=== PATIENT | male | born 1955 | race Caucasian/White ===

== ENCOUNTER 2019-10-12 09:00 | Inpatient (IN) | payer MEDICAID ==
[~2019-10-12] VITALS: Ht 172.7 cm; Wt 57.4 kg
[2019-10-12 10:55] LABS: HEMATOCRIT. 49.5 % (42.0-52.0); HEMOGLOBIN. 16.4 g/dL (14.0-18.0); MEAN CORPUSCULAR HEMOGLOBIN 32.2 pg (28.0-32.0); MEAN CORPUSCULAR VOLUME 97.1 fL (80.0-94.0); MEAN PLATELET VOLUME 7.3 fl (7.4-10.4); PLATELET 180 x1000/uL (130-400); RED CELL DISTRIBUTION WIDTH 14.1 % (11.6-14.6)
[2019-10-12 11:01] LABS: INR 1.1; PROTHROMBIN TIME 12.1 sec (9.6-11.0)
[2019-10-12 11:03] LABS: CHLORIDE 105 mEq/L (98-107)
[2019-10-12 11:31] LABS: PLATELET ESTIMATE NORMAL
[2019-10-12] MEDS ORDERED: SODIUM CHLORIDE 0.9% 1,000 ML IV ONE ×2 (11:36→12:29)
[2019-10-12 11:43] LABS: BG BASE EXCESS -1.6 mmol/L (-2.0-2.0); BG CARBOXYHEMOGLOBIN 0.4 % (0.5-1.5); BG DEOXYHEMOGLOBIN 3.3 % (0.0-5.0); BG FRACTION INSPIRED OXYGEN 36; BG HCO3 ACT 20.3 mmol/L (22.0-26.0); BG METHEMOGLOBIN 0.1 % (0.0-1.5); BG OXYGEN SATURATION 96.7 % (92.0-98.5); BG OXYHEMOGLOBIN 96.2 % (94.0-97.0); BG PCO2 27.6 mmHg (35.0-45.0); BG PH 7.484 (7.350-7.450); BG PO2 84.9 mmHg (75.0-100.0); BG SAMPLE SITE RIGHT BRACHIAL; BG TOTAL HEMOGLOBIN 15.4 g/dL (12.0-18.0); BG VENT MODE NASAL CANNULA
[2019-10-12] MEDS ORDERED: VANCOMYCIN 1 G PREMIX 200 ML IV ONE (11:45)
[2019-10-12] MEDS ORDERED: PIPERACILLIN/TAZ 3.375G PREMIX 50 ML IV ONE (11:45)
[2019-10-12] MEDS ORDERED: LEVOFLOXACIN 750MG PREMIX 150 ML IV ONE (13:00)
[2019-10-12] MEDS ORDERED: BENZONATATE 100MG CAPSULE PO PRN (14:15)
[2019-10-12] MEDS ORDERED: METOCLOPRAMIDE HCL 10MG/2ML VIAL IV PRN (14:15)
[2019-10-12] MEDS ORDERED: CLONIDINE 0.1MG TABLET PO PRN (14:15)
[2019-10-12] MEDS ORDERED: FUROSEMIDE 40MG/4ML VIAL IVP NR (15:18)
[2019-10-12] MEDS ORDERED: CEFEPIME 1,000 MG in DEXTROSE 5% WATER 50 ML IV NR (15:30)
[2019-10-12] MEDS: CEFEPIME 1,000 MG in DEXTROSE 5% WATER 50 ML IV SCH (15:33)
[2019-10-12] MEDS: THIAMINE HCL 100MG TABLET PO SCH (19:13)
[2019-10-12] MEDS ORDERED: ASCORBIC ACID 500 MG TABLET PO SCH (21:00)
[2019-10-13] MEDS: CEFEPIME 1,000 MG in DEXTROSE 5% WATER 50 ML IV SCH (02:15)
[2019-10-13] MEDS ORDERED: ZINC SULFATE 220 MG ( 50 ) CAPSULE PO SCH (09:00)
[2019-10-13] MEDS: THIAMINE HCL 100MG TABLET PO SCH ×2 (09:00→17:00)
[2019-10-13] MEDS ORDERED: AZITHROMYCIN 500 MG TABLET PO SCH (09:00)
[2019-10-13] MEDS: AZITHROMYCIN 500MG in DEXTROSE 5% WATER 250ML IV SCH ×2 (09:30→12:53)
[2019-10-13] MEDS ORDERED: CEFEPIME 1,000 MG in DEXTROSE 5% WATER 50 ML IV SCH (14:45)
[2019-10-13 22:47] VITALS: BP 137/81
[2019-10-14] VITALS: BP 135/79
[2019-10-14] MEDS ORDERED: CLOP75TA4 PO (01:07)
[2019-10-14] MEDS ORDERED: ACET-2708 MT (01:07)
[2019-10-14] MEDS ORDERED: BENA20TA10 MT (01:07)
[2019-10-14] MEDS ORDERED: ASPI-1497 PO (01:07)
[2019-10-14] MEDS ORDERED: TOPUD MT (01:07)
[2019-10-14 04:00] VITALS: BP 138/88
[2019-10-14] MEDS: ACETAMINOPHEN 325MG TABLET PO PRN ×2 (05:21→22:24)
[2019-10-14 08:00] VITALS: BP 135/81
[2019-10-14] MEDS: THIAMINE HCL 100MG TABLET PO SCH ×2 (10:36→19:08)
[2019-10-14] MEDS: AZITHROMYCIN 250 MG TABLET PO SCH (10:37)
[2019-10-14] MEDS: ASCORBIC ACID 500 MG TABLET PO SCH ×2 (10:37→21:48)
[2019-10-14] MEDS: ENOXAPARIN 40MG/0.4ML SYR SUBCUT SCH (10:38)
[2019-10-14] MEDS: CEFEPIME 1,000 MG in DEXTROSE 5% WATER 50 ML IV SCH ×2 (10:39→22:24)
[2019-10-14] MEDS: ZINC SULFATE 220 MG ( 50 ) CAPSULE PO SCH (10:39)
[2019-10-14] MEDS ORDERED: FUROSEMIDE 40MG TABLET PO NR (11:44)
[2019-10-14 12:00] VITALS: BP 139/83
[2019-10-14 16:00] VITALS: BP_SYST 147
[2019-10-14 18:21] LABS: COVID-19 PCR RNA DETECTED
[2019-10-14 20:00] VITALS: BP 151/89
[2019-10-15] VITALS (7 sets, daily range): BP systolic 134–158; BP diastolic 63–91
[2019-10-15] MEDS: AZITHROMYCIN 250 MG TABLET PO SCH (08:20)
[2019-10-15] MEDS: FUROSEMIDE 20MG/2ML VIAL IVP SCH (08:20)
[2019-10-15] MEDS: ASCORBIC ACID 500 MG TABLET PO SCH ×2 (08:21→20:21)
[2019-10-15] MEDS: ENOXAPARIN 40MG/0.4ML SYR SUBCUT SCH (08:21)
[2019-10-15] MEDS: THIAMINE HCL 100MG TABLET PO SCH ×2 (08:21→17:55)
[2019-10-15] MEDS: ZINC SULFATE 220 MG ( 50 ) CAPSULE PO SCH (08:21)
[2019-10-15] MEDS: CEFEPIME 1,000 MG in DEXTROSE 5% WATER 50 ML IV SCH ×2 (08:22→20:21)
[2019-10-15] MEDS: ALBUTEROL 6.7GM HFA INHALER ORI SCH ×2 (18:05→23:17)
[2019-10-15] MEDS ORDERED: DEXT 5%/0.45% NACL 1000ML 1,000 ML IV SCH (18:30)
[2019-10-15 20:53] LABS: COVID-19 PCR RNA DETECTED
[2019-10-15] MEDS: ACETAMINOPHEN 325MG TABLET PO PRN (21:41)
[2019-10-15 22:01] LABS: BASOPHILS % 0.1 % (0.0-2.0); HEMATOCRIT. 45.2 % (42.0-52.0); HEMOGLOBIN. 15.3 g/dL (14.0-18.0); LYMPHOCYTES % 14.2 % (20.0-50.0); MEAN CORPUSCULAR HEMOGLOBIN 32.5 pg (28.0-32.0); MEAN CORPUSCULAR VOLUME 95.8 fL (80.0-94.0); MEAN PLATELET VOLUME 8.2 fl (7.4-10.4); MONOCYTES % 9.3 % (2.0-8.0); NEUTROPHILS % 76.4 % (40.0-76.0); PLATELET 290 x1000/uL (130-400); RED BLOOD CELL COUNT 4.72 mill/uL (4.7-6.1); RED CELL DISTRIBUTION WIDTH 14.2 % (11.6-14.6)
[2019-10-15 22:08] LABS: CHLORIDE 110 mEq/L (98-107)
[2019-10-16] VITALS: BP 131/87
[2019-10-16 04:00] VITALS: BP 120/71
[2019-10-16 06:14] LABS: BASOPHILS % 0.2 % (0.0-2.0); EOSINOPHILS % 0.1 % (0.0-5.0); HEMATOCRIT. 44.3 % (42.0-52.0); HEMOGLOBIN. 14.7 g/dL (14.0-18.0); LYMPHOCYTES % 14.5 % (20.0-50.0); MEAN CORPUSCULAR HEMOGLOBIN 32.1 pg (28.0-32.0); MEAN CORPUSCULAR VOLUME 96.5 fL (80.0-94.0); MEAN PLATELET VOLUME 8.3 fl (7.4-10.4); NEUTROPHILS % 78.2 % (40.0-76.0); PLATELET 285 x1000/uL (130-400); RED BLOOD CELL COUNT 4.59 mill/uL (4.7-6.1); RED CELL DISTRIBUTION WIDTH 14.2 % (11.6-14.6)
[2019-10-16] MEDS: ALBUTEROL 6.7GM HFA INHALER ORI SCH ×3 (06:51→17:11)
[2019-10-16 07:43] LABS: CHLORIDE 111 mEq/L (98-107)
[2019-10-16 08:00] VITALS: BP 144/70
[2019-10-16 08:00] LABS: PHOSPHORUS 3.3 mg/dL (2.5-4.9)
[2019-10-16 08:03] LABS: CREATINE KINASE MB FRACTION < 1.0 ng/mL (0.5-3.6)
[2019-10-16] MEDS: CEFEPIME 1,000 MG in DEXTROSE 5% WATER 50 ML IV SCH ×2 (09:57→20:59)
[2019-10-16] MEDS: FUROSEMIDE 20MG/2ML VIAL IVP SCH (09:57)
[2019-10-16] MEDS: ZINC SULFATE 220 MG ( 50 ) CAPSULE PO SCH (09:57)
[2019-10-16] MEDS: THIAMINE HCL 100MG TABLET PO SCH ×2 (09:58→16:31)
[2019-10-16] MEDS: AZITHROMYCIN 250 MG TABLET PO SCH (09:58)
[2019-10-16] MEDS: ASCORBIC ACID 500 MG TABLET PO SCH ×2 (09:58→20:59)
[2019-10-16] MEDS: ENOXAPARIN 40MG/0.4ML SYR SUBCUT SCH (09:59)
[2019-10-16 12:00] VITALS: BP 118/79
[2019-10-16] MEDS ORDERED: FUROSEMIDE 40MG/4ML VIAL IVP SCH (12:00)
[2019-10-16] MEDS: METHYLPREDNISOLONE SOD SUCC 40 MG/ML VIAL IV SCH ×2 (12:04→21:02)
[2019-10-16 16:00] VITALS: BP 111/70
[2019-10-16] MEDS ORDERED: ENOXAPARIN 30MG/0.3ML SYR SUBCUT SCH (17:00)
[2019-10-16] MEDS: FLUTICASONE FUROATE 100 1 INH/CAP ORI SCH ×2 (17:10→20:59)
[2019-10-16 20:00] VITALS: BP 112/75
[2019-10-16] MEDS: ENOXAPARIN 60MG/0.6ML SYR SUBCUT SCH (21:03)
[2019-10-17] VITALS (7 sets, daily range): BP systolic 113–119; BP diastolic 72–78
[2019-10-17] MEDS: ALBUTEROL 6.7GM HFA INHALER ORI SCH ×4 (05:22→18:23)
[2019-10-17] MEDS: FUROSEMIDE 20MG/2ML VIAL IVP SCH (09:09)
[2019-10-17] MEDS: CEFEPIME 1,000 MG in DEXTROSE 5% WATER 50 ML IV SCH ×2 (09:09→21:21)
[2019-10-17] MEDS: AZITHROMYCIN 250 MG TABLET PO SCH (09:09)
[2019-10-17] MEDS: THIAMINE HCL 100MG TABLET PO SCH ×2 (09:09→16:24)
[2019-10-17] MEDS: METHYLPREDNISOLONE SOD SUCC 40 MG/ML VIAL IV SCH ×2 (09:09→21:21)
[2019-10-17] MEDS: ZINC SULFATE 220 MG ( 50 ) CAPSULE PO SCH (09:09)
[2019-10-17] MEDS: ASCORBIC ACID 500 MG TABLET PO SCH ×2 (09:09→21:21)
[2019-10-17] MEDS: ENOXAPARIN 60MG/0.6ML SYR SUBCUT SCH ×2 (09:10→21:21)
[2019-10-17] MEDS: FLUTICASONE FUROATE 100 1 INH/CAP ORI SCH ×2 (09:10→21:21)
[2019-10-18] VITALS (7 sets, daily range): BP systolic 108–127; BP diastolic 70–75
[2019-10-18] MEDS: ALBUTEROL 6.7GM HFA INHALER ORI SCH ×5 (00:26→23:14)
[2019-10-18] MEDS: CEFEPIME 1,000 MG in DEXTROSE 5% WATER 50 ML IV SCH ×2 (08:02→20:17)
[2019-10-18] MEDS: ZINC SULFATE 220 MG ( 50 ) CAPSULE PO SCH (08:03)
[2019-10-18] MEDS: ASCORBIC ACID 500 MG TABLET PO SCH ×2 (08:03→20:17)
[2019-10-18] MEDS: METHYLPREDNISOLONE SOD SUCC 40 MG/ML VIAL IV SCH ×2 (08:03→20:17)
[2019-10-18] MEDS: THIAMINE HCL 100MG TABLET PO SCH ×2 (08:03→16:28)
[2019-10-18] MEDS: FLUTICASONE FUROATE 100 1 INH/CAP ORI SCH ×2 (08:03→20:17)
[2019-10-18] MEDS: FUROSEMIDE 20MG/2ML VIAL IVP SCH (08:03)
[2019-10-18] MEDS: ENOXAPARIN 60MG/0.6ML SYR SUBCUT SCH ×2 (08:04→20:18)
[2019-10-19] VITALS (7 sets, daily range): BP systolic 111–131; BP diastolic 65–89
[2019-10-19] MEDS: DOXYCYCLINE 100 MG in DEXT 5% WATER 100 ML IV SCH ×2 (03:31→13:17)
[2019-10-19] MEDS: ALBUTEROL 6.7GM HFA INHALER ORI SCH ×3 (05:28→18:21)
[2019-10-19 07:09] LABS: HEMATOCRIT. 53.8 % (42.0-52.0); MEAN CORPUSCULAR HEMOGLOBIN 32.6 pg (28.0-32.0); MEAN CORPUSCULAR VOLUME 97.4 fL (80.0-94.0); MEAN PLATELET VOLUME 9.2 fl (7.4-10.4); PLATELET 449 x1000/uL (130-400); RED BLOOD CELL COUNT 5.53 mill/uL (4.7-6.1); RED CELL DISTRIBUTION WIDTH 14.7 % (11.6-14.6)
[2019-10-19 07:50] LABS: CHLORIDE 111 mEq/L (98-107)
[2019-10-19] MEDS: METHYLPREDNISOLONE SOD SUCC 40 MG/ML VIAL IV SCH (09:04)
[2019-10-19] MEDS: FUROSEMIDE 20MG/2ML VIAL IVP SCH (09:04)
[2019-10-19] MEDS: CEFEPIME 1,000 MG in DEXTROSE 5% WATER 50 ML IV SCH ×2 (09:04→20:00)
[2019-10-19] MEDS: ZINC SULFATE 220 MG ( 50 ) CAPSULE PO SCH (09:05)
[2019-10-19] MEDS: ASCORBIC ACID 500 MG TABLET PO SCH ×2 (09:05→20:00)
[2019-10-19] MEDS: THIAMINE HCL 100MG TABLET PO SCH ×2 (09:05→17:00)
[2019-10-19] MEDS: ENOXAPARIN 60MG/0.6ML SYR SUBCUT SCH ×2 (09:06→20:00)
[2019-10-19] MEDS: FLUTICASONE FUROATE 100 1 INH/CAP ORI SCH ×2 (10:13→20:00)
[2019-10-19] MEDS ORDERED: LORAZEPAM 2MG/ML CPJ IV PRN (10:15)
[2019-10-19] MEDS ORDERED: FUROSEMIDE 20MG/2ML VIAL IVP SCH (11:45)
[2019-10-19 16:42] LABS: PLATELET ESTIMATE INCREASED
[2019-10-20] VITALS: BP 108/54
[2019-10-20] MEDS: DOXYCYCLINE 100 MG in DEXT 5% WATER 100 ML IV SCH ×2 (02:54→18:32)
[2019-10-20 04:00] VITALS: BP 133/70
[2019-10-20] MEDS: ALBUTEROL 6.7GM HFA INHALER ORI SCH ×4 (05:45→18:33)
[2019-10-20 08:00] VITALS: BP 103/73
[2019-10-20] MEDS: ASCORBIC ACID 500 MG TABLET PO SCH ×2 (10:00→20:28)
[2019-10-20] MEDS: ENOXAPARIN 60MG/0.6ML SYR SUBCUT SCH ×2 (10:01→20:28)
[2019-10-20] MEDS: ZINC SULFATE 220 MG ( 50 ) CAPSULE PO SCH (10:01)
[2019-10-20] MEDS: THIAMINE HCL 100MG TABLET PO SCH ×2 (10:01→18:32)
[2019-10-20] MEDS: FUROSEMIDE 20MG/2ML VIAL IVP SCH (10:02)
[2019-10-20] MEDS: FLUTICASONE FUROATE 100 1 INH/CAP ORI SCH ×2 (10:02→20:28)
[2019-10-20] MEDS: MORPHINE SULFATE 2 MG/ML CPJ (NOT FOR IM USE) IV PRN (10:44)
[2019-10-20 16:00] VITALS: BP 100/61
[2019-10-20 20:00] VITALS: BP 101/66
[2019-10-21] VITALS: BP 132/66
[2019-10-21] MEDS: ALBUTEROL 6.7GM HFA INHALER ORI SCH ×4 (00:58→17:38)
[2019-10-21 04:00] VITALS: BP 108/70
[2019-10-21 08:00] VITALS: BP 130/112
[2019-10-21] MEDS: ZINC SULFATE 220 MG ( 50 ) CAPSULE PO SCH (08:27)
[2019-10-21] MEDS: THIAMINE HCL 100MG TABLET PO SCH ×2 (08:27→17:38)
[2019-10-21] MEDS: ENOXAPARIN 60MG/0.6ML SYR SUBCUT SCH ×2 (08:28→21:54)
[2019-10-21] MEDS: FUROSEMIDE 20MG/2ML VIAL IVP SCH (08:28)
[2019-10-21] MEDS: DOXYCYCLINE HYCLATE 100MG CAPSULE PO SCH ×2 (08:28→17:38)
[2019-10-21] MEDS: ASCORBIC ACID 500 MG TABLET PO SCH ×2 (08:28→21:54)
[2019-10-21] MEDS: FLUTICASONE FUROATE 100 1 INH/CAP ORI SCH ×2 (08:29→21:00)
[2019-10-21 12:00] VITALS: BP 138/98
[2019-10-21 12:45] LABS: BASOPHILS % 0.2 % (0.0-2.0); EOSINOPHILS % 0.1 % (0.0-5.0); HEMATOCRIT. 53.3 % (42.0-52.0); HEMOGLOBIN. 17.5 g/dL (14.0-18.0); LYMPHOCYTES % 10.6 % (20.0-50.0); MEAN CORPUSCULAR VOLUME 97.7 fL (80.0-94.0); MONOCYTES % 3.8 % (2.0-8.0); NEUTROPHILS % 85.3 % (40.0-76.0); RED BLOOD CELL COUNT 5.45 mill/uL (4.7-6.1); RED CELL DISTRIBUTION WIDTH 14.6 % (11.6-14.6)
[2019-10-21 12:49] LABS: CHLORIDE 122 mEq/L (98-107)
[2019-10-21 13:44] LABS: MEAN PLATELET VOLUME 10.8 fl (7.4-10.4); PLATELET 326 x1000/uL (130-400)
[2019-10-21] MEDS: DEXTROSE 5% WATER 1,000 ML IV SCH (15:17)
[2019-10-21 16:00] VITALS: BP 93/67
[2019-10-21] MEDS: MORPHINE SULFATE 2 MG/ML CPJ (NOT FOR IM USE) IV PRN (17:50)
[2019-10-21 20:00] VITALS: BP 102/64
[2019-10-22] VITALS (7 sets, daily range): BP systolic 98–120; BP diastolic 54–87
[2019-10-22] MEDS: ALBUTEROL 6.7GM HFA INHALER ORI SCH ×5 (00:37→23:22)
[2019-10-22] MEDS: FLUTICASONE FUROATE 100 1 INH/CAP ORI SCH ×3 (09:00→21:34)
[2019-10-22] MEDS: FUROSEMIDE 20MG/2ML VIAL IVP SCH (10:16)
[2019-10-22] MEDS: DOXYCYCLINE HYCLATE 100MG CAPSULE PO SCH ×2 (10:17→17:27)
[2019-10-22] MEDS: ZINC SULFATE 220 MG ( 50 ) CAPSULE PO SCH (10:17)
[2019-10-22] MEDS: THIAMINE HCL 100MG TABLET PO SCH ×2 (10:17→17:27)
[2019-10-22] MEDS: ASCORBIC ACID 500 MG TABLET PO SCH ×2 (10:17→21:34)
[2019-10-22] MEDS: ENOXAPARIN 60MG/0.6ML SYR SUBCUT SCH ×2 (10:18→21:34)
[2019-10-22] MEDS: SODIUM CHLORIDE 45ML SPRAY NS SCH ×2 (14:13→17:27)
[2019-10-22] MEDS: DEXTROSE 5% WATER 1,000 ML IV SCH (14:14)
[2019-10-23] VITALS: BP 110/80
[2019-10-23] MEDS: SODIUM CHLORIDE 45ML SPRAY NS SCH ×6 (00:25→18:25)
[2019-10-23 04:00] VITALS: BP 118/66
[2019-10-23] MEDS: ALBUTEROL 6.7GM HFA INHALER ORI SCH ×4 (05:00→18:22)
[2019-10-23] MEDS: DEXTROSE 5% WATER 1,000 ML IV SCH (05:05)
[2019-10-23] MEDS: FLUTICASONE FUROATE 100 1 INH/CAP ORI SCH ×2 (08:28→21:00)
[2019-10-23] MEDS: ZINC SULFATE 220 MG ( 50 ) CAPSULE PO SCH (08:29)
[2019-10-23] MEDS: ENOXAPARIN 60MG/0.6ML SYR SUBCUT SCH ×2 (08:29→20:48)
[2019-10-23] MEDS: DOXYCYCLINE HYCLATE 100MG CAPSULE PO SCH ×2 (08:29→16:38)
[2019-10-23] MEDS: ASCORBIC ACID 500 MG TABLET PO SCH ×2 (08:29→20:47)
[2019-10-23] MEDS: THIAMINE HCL 100MG TABLET PO SCH ×2 (08:29→16:38)
[2019-10-23 09:53] VITALS: BP 120/69
[2019-10-23 12:26] VITALS: BP 107/65
[2019-10-23 17:07] VITALS: BP 98/64
[2019-10-23 20:00] VITALS: BP 100/61
[2019-10-24] VITALS: BP 108/68
[2019-10-24] MEDS: DEXTROSE 5% WATER 1,000 ML IV SCH ×2 (01:43→21:04)
[2019-10-24 04:00] VITALS: BP 99/59
[2019-10-24] MEDS: ALBUTEROL 6.7GM HFA INHALER ORI SCH ×4 (05:25→17:17)
[2019-10-24] MEDS: SODIUM CHLORIDE 45ML SPRAY NS SCH ×4 (05:25→17:18)
[2019-10-24] MEDS: FLUTICASONE FUROATE 100 1 INH/CAP ORI SCH ×2 (08:31→21:04)
[2019-10-24] MEDS: DOXYCYCLINE HYCLATE 100MG CAPSULE PO SCH ×2 (08:32→16:29)
[2019-10-24] MEDS: THIAMINE HCL 100MG TABLET PO SCH ×2 (08:32→16:29)
[2019-10-24] MEDS: ENOXAPARIN 60MG/0.6ML SYR SUBCUT SCH ×2 (08:32→21:03)
[2019-10-24] MEDS: ASCORBIC ACID 500 MG TABLET PO SCH ×2 (08:32→21:04)
[2019-10-24] MEDS: ZINC SULFATE 220 MG ( 50 ) CAPSULE PO SCH (08:32)
[2019-10-24 12:00] VITALS: BP 114/66
[2019-10-24 16:00] VITALS: BP 95/52
[2019-10-24 20:00] VITALS: BP 103/57
[2019-10-25] VITALS: BP 109/58
[2019-10-25 04:00] VITALS: BP 120/34
[2019-10-25] MEDS: SODIUM CHLORIDE 45ML SPRAY NS SCH ×4 (05:10→17:15)
[2019-10-25] MEDS: ALBUTEROL 6.7GM HFA INHALER ORI SCH ×4 (05:10→17:15)
[2019-10-25 08:00] VITALS: BP 101/69
[2019-10-25] MEDS: FLUTICASONE FUROATE 100 1 INH/CAP ORI SCH ×2 (09:28→21:38)
[2019-10-25] MEDS: THIAMINE HCL 100MG TABLET PO SCH ×2 (09:28→17:15)
[2019-10-25] MEDS: ASCORBIC ACID 500 MG TABLET PO SCH ×2 (09:28→21:37)
[2019-10-25] MEDS: ZINC SULFATE 220 MG ( 50 ) CAPSULE PO SCH (09:28)
[2019-10-25] MEDS: ENOXAPARIN 60MG/0.6ML SYR SUBCUT SCH ×2 (09:29→21:37)
[2019-10-25 12:00] VITALS: BP 96/60
[2019-10-25 12:22] LABS: BASOPHILS % 0.7 % (0.0-2.0); EOSINOPHILS % 0.7 % (0.0-5.0); HEMATOCRIT. 44.2 % (42.0-52.0); HEMOGLOBIN. 14.8 g/dL (14.0-18.0); LYMPHOCYTES % 10.4 % (20.0-50.0); MEAN CORPUSCULAR HEMOGLOBIN 32.4 pg (28.0-32.0); MEAN CORPUSCULAR VOLUME 96.9 fL (80.0-94.0); MONOCYTES % 2.8 % (2.0-8.0); NEUTROPHILS % 85.4 % (40.0-76.0); PLATELET 232 x1000/uL (130-400); RED BLOOD CELL COUNT 4.57 mill/uL (4.7-6.1); RED CELL DISTRIBUTION WIDTH 14.1 % (11.6-14.6)
[2019-10-25 12:32] LABS: CHLORIDE 108 mEq/L (98-107)
[2019-10-25 16:00] VITALS: BP 90/61
[2019-10-25 20:00] VITALS: BP 84/53
[2019-10-26] VITALS: BP 92/54
[2019-10-26] MEDS: ALBUTEROL 6.7GM HFA INHALER ORI SCH ×5 (00:14→23:55)
[2019-10-26] MEDS: SODIUM CHLORIDE 45ML SPRAY NS SCH ×5 (00:14→23:55)
[2019-10-26 04:00] VITALS: BP 96/56
[2019-10-26 08:00] VITALS: BP 103/63
[2019-10-26] MEDS: THIAMINE HCL 100MG TABLET PO SCH ×2 (09:22→17:16)
[2019-10-26] MEDS: ENOXAPARIN 60MG/0.6ML SYR SUBCUT SCH ×2 (09:22→21:43)
[2019-10-26] MEDS: FLUTICASONE FUROATE 100 1 INH/CAP ORI SCH ×2 (09:22→21:43)
[2019-10-26] MEDS: ZINC SULFATE 220 MG ( 50 ) CAPSULE PO SCH (09:22)
[2019-10-26] MEDS: ASCORBIC ACID 500 MG TABLET PO SCH ×2 (09:22→21:43)
[2019-10-26 12:00] VITALS: BP 103/64
[2019-10-26 16:00] VITALS: BP 112/70
[2019-10-26 20:00] VITALS: BP 92/58
[2019-10-27] VITALS: BP 103/66
[2019-10-27 04:00] VITALS: BP 99/67
[2019-10-27] MEDS: SODIUM CHLORIDE 45ML SPRAY NS SCH ×3 (06:04→18:35)
[2019-10-27] MEDS: ALBUTEROL 6.7GM HFA INHALER ORI SCH ×3 (06:04→18:35)
[2019-10-27 08:00] VITALS: BP 95/62
[2019-10-27] MEDS: THIAMINE HCL 100MG TABLET PO SCH ×2 (09:51→18:35)
[2019-10-27] MEDS: ENOXAPARIN 60MG/0.6ML SYR SUBCUT SCH ×2 (09:51→21:52)
[2019-10-27] MEDS: ASCORBIC ACID 500 MG TABLET PO SCH ×2 (09:51→21:52)
[2019-10-27] MEDS: FLUTICASONE FUROATE 100 1 INH/CAP ORI SCH ×2 (09:52→21:51)
[2019-10-27] MEDS: ZINC SULFATE 220 MG ( 50 ) CAPSULE PO SCH (09:52)
[2019-10-27 12:00] VITALS: BP 104/64
[2019-10-27 16:00] VITALS: BP 93/58
[2019-10-27 20:00] VITALS: BP 97/63
[2019-10-28] VITALS: BP 111/78
[2019-10-28] MEDS: SODIUM CHLORIDE 45ML SPRAY NS SCH ×5 (00:09→19:26)
[2019-10-28] MEDS: ALBUTEROL 6.7GM HFA INHALER ORI SCH ×4 (00:12→19:26)
[2019-10-28 04:00] VITALS: BP 99/76
[2019-10-28 08:00] VITALS: BP 95/76
[2019-10-28] MEDS: ENOXAPARIN 60MG/0.6ML SYR SUBCUT SCH ×2 (09:00→20:17)
[2019-10-28] MEDS: THIAMINE HCL 100MG TABLET PO SCH ×2 (09:55→17:00)
[2019-10-28] MEDS: ASCORBIC ACID 500 MG TABLET PO SCH ×2 (09:55→20:15)
[2019-10-28] MEDS: ZINC SULFATE 220 MG ( 50 ) CAPSULE PO SCH (09:55)
[2019-10-28] MEDS: FLUTICASONE FUROATE 100 1 INH/CAP ORI SCH ×2 (09:58→20:15)
[2019-10-28 12:00] VITALS: BP 109/56
[2019-10-28 16:00] VITALS: BP 110/55
[2019-10-28 20:00] VITALS: BP 127/101
[2019-10-29] VITALS: BP 104/59
[2019-10-29] MEDS: ALBUTEROL 6.7GM HFA INHALER ORI SCH ×4 (00:26→17:51)
[2019-10-29] MEDS: SODIUM CHLORIDE 45ML SPRAY NS SCH ×4 (00:26→17:51)
[2019-10-29 04:00] VITALS: BP 97/61
[2019-10-29 08:00] VITALS: BP 112/74
[2019-10-29] MEDS: ASCORBIC ACID 500 MG TABLET PO SCH ×2 (09:22→20:49)
[2019-10-29] MEDS: ZINC SULFATE 220 MG ( 50 ) CAPSULE PO SCH (09:23)
[2019-10-29] MEDS: THIAMINE HCL 100MG TABLET PO SCH ×2 (09:23→17:51)
[2019-10-29] MEDS: FLUTICASONE FUROATE 100 1 INH/CAP ORI SCH ×2 (09:24→20:49)
[2019-10-29] MEDS ORDERED: MORPHINE SULFATE 2 MG/ML CPJ (NOT FOR IM USE) IV PRN (11:30)
[2019-10-29] MEDS: ENOXAPARIN 60MG/0.6ML SYR SUBCUT SCH ×2 (11:47→20:49)
[2019-10-29 12:00] VITALS: BP 101/72
[2019-10-29 16:00] VITALS: BP 101/72
[2019-10-29] MEDS: ACETAMINOPHEN 325MG TABLET PO PRN (17:51)
[2019-10-29 20:00] VITALS: BP 98/62
[2019-10-30] VITALS: BP 105/63
[2019-10-30] MEDS: ALBUTEROL 6.7GM HFA INHALER ORI SCH ×4 (00:51→18:00)
[2019-10-30] MEDS: SODIUM CHLORIDE 45ML SPRAY NS SCH ×4 (00:51→18:00)
[2019-10-30 04:00] VITALS: BP 105/67
[2019-10-30 08:00] VITALS: BP 112/76
[2019-10-30] MEDS: ASCORBIC ACID 500 MG TABLET PO SCH ×2 (09:00→21:51)
[2019-10-30] MEDS: FLUTICASONE FUROATE 100 1 INH/CAP ORI SCH ×2 (09:18→21:00)
[2019-10-30] MEDS: ZINC SULFATE 220 MG ( 50 ) CAPSULE PO SCH (09:59)
[2019-10-30] MEDS: THIAMINE HCL 100MG TABLET PO SCH ×2 (09:59→17:28)
[2019-10-30] MEDS: ENOXAPARIN 60MG/0.6ML SYR SUBCUT SCH ×2 (10:00→21:51)
[2019-10-30 12:00] VITALS: BP 107/60
[2019-10-30 13:12] LABS: BASOPHILS % 0.3 % (0.0-2.0); HEMATOCRIT. 41.9 % (42.0-52.0); HEMOGLOBIN. 13.6 g/dL (14.0-18.0); LYMPHOCYTES % 11.3 % (20.0-50.0); MEAN CORPUSCULAR HEMOGLOBIN 32.2 pg (28.0-32.0); MEAN CORPUSCULAR VOLUME 98.9 fL (80.0-94.0); MEAN PLATELET VOLUME 11.1 fl (7.4-10.4); MONOCYTES % 3.6 % (2.0-8.0); NEUTROPHILS % 83.8 % (40.0-76.0); PLATELET 161 x1000/uL (130-400); RED BLOOD CELL COUNT 4.23 mill/uL (4.7-6.1); RED CELL DISTRIBUTION WIDTH 14.6 % (11.6-14.6)
[2019-10-30 13:19] LABS: CHLORIDE 115 mEq/L (98-107)
[2019-10-30] MEDS: DEXTROSE 5% WATER 1,000 ML IV SCH (14:30)
[2019-10-30 16:00] VITALS: BP_SYST 107; BP_SYST 110; BP_SYST 112; BP_DIAS 61; BP_DIAS 62
[2019-10-30 20:00] VITALS: BP 94/71
[2019-10-31] VITALS (9 sets, daily range): BP systolic 96–125; BP diastolic 63–78
[2019-10-31] MEDS: SODIUM CHLORIDE 45ML SPRAY NS SCH ×5 (00:39→23:39)
[2019-10-31] MEDS: ALBUTEROL 6.7GM HFA INHALER ORI SCH ×5 (00:39→23:40)
[2019-10-31] MEDS: THIAMINE HCL 100MG TABLET PO SCH ×2 (08:54→17:14)
[2019-10-31] MEDS: ENOXAPARIN 60MG/0.6ML SYR SUBCUT SCH ×2 (08:54→21:18)
[2019-10-31] MEDS: ASCORBIC ACID 500 MG TABLET PO SCH ×2 (08:54→21:17)
[2019-10-31] MEDS: ZINC SULFATE 220 MG ( 50 ) CAPSULE PO SCH (08:54)
[2019-10-31] MEDS: FLUTICASONE FUROATE 100 1 INH/CAP ORI SCH ×2 (11:09→21:17)
[2019-10-31] MEDS: DEXTROSE 5% WATER 1,000 ML IV SCH (11:56)
[2019-11-01] VITALS: BP 95/62
[2019-11-01 04:00] VITALS: BP 90/44
[2019-11-01] MEDS ORDERED: LORAZEPAM 2MG/ML CPJ IM PRN (05:30)
[2019-11-01] MEDS: SODIUM CHLORIDE 45ML SPRAY NS SCH ×3 (05:36→18:03)
[2019-11-01] MEDS: ALBUTEROL 6.7GM HFA INHALER ORI SCH ×3 (05:46→18:03)
[2019-11-01] MEDS: LORAZEPAM 2MG/ML CPJ IV PRN ×2 (05:46→21:36)
[2019-11-01] MEDS: DEXTROSE 5% WATER 1,000 ML IV SCH (06:30)
[2019-11-01 08:00] VITALS: BP 96/47
[2019-11-01] MEDS: FLUTICASONE FUROATE 100 1 INH/CAP ORI SCH ×2 (09:00→21:08)
[2019-11-01] MEDS: ZINC SULFATE 220 MG ( 50 ) CAPSULE PO SCH (09:00)
[2019-11-01] MEDS: THIAMINE HCL 100MG TABLET PO SCH ×2 (09:00→16:50)
[2019-11-01] MEDS: ASCORBIC ACID 500 MG TABLET PO SCH ×2 (09:00→21:00)
[2019-11-01] MEDS: ENOXAPARIN 60MG/0.6ML SYR SUBCUT SCH ×2 (10:45→21:09)
[2019-11-01 12:00] VITALS: BP 98/46
[2019-11-01 16:00] VITALS: BP 118/86
[2019-11-01 20:00] VITALS: BP 99/61
[2019-11-02] VITALS: BP 98/55
[2019-11-02] MEDS: SODIUM CHLORIDE 45ML SPRAY NS SCH ×5 (00:19→16:54)
[2019-11-02] MEDS: ALBUTEROL 6.7GM HFA INHALER ORI SCH ×4 (00:20→16:53)
[2019-11-02] MEDS: DEXTROSE 5% WATER 1,000 ML IV SCH ×2 (02:53→21:36)
[2019-11-02 04:00] VITALS: BP 93/56
[2019-11-02 08:00] VITALS: BP 105/69
[2019-11-02] MEDS: ASCORBIC ACID 500 MG TABLET PO SCH ×2 (09:00→20:49)
[2019-11-02] MEDS: FLUTICASONE FUROATE 100 1 INH/CAP ORI SCH ×3 (09:00→21:34)
[2019-11-02] MEDS: ENOXAPARIN 60MG/0.6ML SYR SUBCUT SCH ×2 (09:00→20:51)
[2019-11-02] MEDS: THIAMINE HCL 100MG TABLET PO SCH ×2 (09:00→16:38)
[2019-11-02] MEDS: ZINC SULFATE 220 MG ( 50 ) CAPSULE PO SCH (09:00)
[2019-11-02 12:00] VITALS: BP 112/59
[2019-11-02 16:00] VITALS: BP 107/58
[2019-11-02 20:38] VITALS: BP 102/62
[2019-11-03 00:05] VITALS: BP 104/76
[2019-11-03] MEDS: ALBUTEROL 6.7GM HFA INHALER ORI SCH ×4 (00:27→18:00)
[2019-11-03] MEDS: SODIUM CHLORIDE 45ML SPRAY NS SCH ×4 (00:27→18:04)
[2019-11-03 04:00] VITALS: BP 98/77
[2019-11-03 08:00] VITALS: BP 127/64
[2019-11-03] MEDS: ENOXAPARIN 60MG/0.6ML SYR SUBCUT SCH ×2 (09:00→21:00)
[2019-11-03] MEDS: FLUTICASONE FUROATE 100 1 INH/CAP ORI SCH ×2 (09:00→21:00)
[2019-11-03] MEDS: ZINC SULFATE 220 MG ( 50 ) CAPSULE PO SCH (09:00)
[2019-11-03] MEDS: THIAMINE HCL 100MG TABLET PO SCH ×2 (09:00→16:15)
[2019-11-03] MEDS: ASCORBIC ACID 500 MG TABLET PO SCH ×2 (09:00→20:59)
[2019-11-03 12:00] VITALS: BP 99/64
[2019-11-03 16:00] VITALS: BP_SYST 100; BP_SYST 99; BP_DIAS 63; BP_DIAS 64
[2019-11-03] MEDS: DEXTROSE 5% WATER 1,000 ML IV SCH (18:04)
[2019-11-03 20:00] VITALS: BP 113/60
[2019-11-04] MEDS: SODIUM CHLORIDE 45ML SPRAY NS SCH ×4 (00:28→18:17)
[2019-11-04 00:37] VITALS: BP 109/58
[2019-11-04 04:43] VITALS: BP 103/63
[2019-11-04] MEDS: ALBUTEROL 6.7GM HFA INHALER ORI SCH ×4 (05:48→17:35)
[2019-11-04 08:00] VITALS: BP 94/56
[2019-11-04] MEDS: ASCORBIC ACID 500 MG TABLET PO SCH ×2 (08:07→22:17)
[2019-11-04] MEDS: THIAMINE HCL 100MG TABLET PO SCH ×2 (08:07→17:00)
[2019-11-04] MEDS: ZINC SULFATE 220 MG ( 50 ) CAPSULE PO SCH (08:07)
[2019-11-04] MEDS: FLUTICASONE FUROATE 100 1 INH/CAP ORI SCH ×3 (09:00→22:44)
[2019-11-04] MEDS: ENOXAPARIN 60MG/0.6ML SYR SUBCUT SCH ×2 (09:26→22:17)
[2019-11-04 12:00] VITALS: BP 105/55
[2019-11-04] MEDS ORDERED: MORPHINE SULFATE 2 MG/ML CPJ (NOT FOR IM USE) IV PRN (14:00)
[2019-11-04] MEDS: DEXTROSE 5% WATER 1,000 ML IV SCH (14:30)
[2019-11-04 16:00] VITALS: BP 110/65
[2019-11-04 20:00] VITALS: BP 103/55
[2019-11-05] VITALS: BP 98/50
[2019-11-05] MEDS: SODIUM CHLORIDE 45ML SPRAY NS SCH ×4 (00:32→17:40)
[2019-11-05] MEDS: ALBUTEROL 6.7GM HFA INHALER ORI SCH ×5 (00:33→23:51)
[2019-11-05] MEDS: DEXTROSE 5% WATER 1,000 ML IV SCH (01:49)
[2019-11-05 04:00] VITALS: BP 87/55
[2019-11-05 08:00] VITALS: BP 101/59
[2019-11-05 08:53] LABS: BASOPHILS % 0.2 % (0.0-2.0); EOSINOPHILS % 0.1 % (0.0-5.0); HEMATOCRIT. 37.1 % (42.0-52.0); HEMOGLOBIN. 12.4 g/dL (14.0-18.0); LYMPHOCYTES % 10.7 % (20.0-50.0); MEAN CORPUSCULAR HEMOGLOBIN 32.9 pg (28.0-32.0); MEAN CORPUSCULAR VOLUME 98.1 fL (80.0-94.0); MEAN PLATELET VOLUME 11.5 fl (7.4-10.4); MONOCYTES % 1.3 % (2.0-8.0); NEUTROPHILS % 87.7 % (40.0-76.0); PLATELET 75 x1000/uL (130-400); RED BLOOD CELL COUNT 3.78 mill/uL (4.7-6.1); RED CELL DISTRIBUTION WIDTH 14.6 % (11.6-14.6)
[2019-11-05 09:00] LABS: CHLORIDE 105 mEq/L (98-107)
[2019-11-05] MEDS: ASCORBIC ACID 500 MG TABLET PO SCH ×2 (09:00→21:00)
[2019-11-05] MEDS: FLUTICASONE FUROATE 100 1 INH/CAP ORI SCH ×2 (09:00→21:51)
[2019-11-05] MEDS: THIAMINE HCL 100MG TABLET PO SCH ×2 (09:00→17:00)
[2019-11-05] MEDS: ZINC SULFATE 220 MG ( 50 ) CAPSULE PO SCH (09:00)
[2019-11-05] MEDS: ENOXAPARIN 60MG/0.6ML SYR SUBCUT SCH (09:19)
[2019-11-05 12:00] VITALS: BP 101/59
[2019-11-05] MEDS ORDERED: POTASSIUM CHLORIDE INJ 40 MEQ in DEXT 5% WATER 250 ML IV NR (13:00)
[2019-11-05 16:00] VITALS: BP 102/60
[2019-11-05 20:00] VITALS: BP 108/64
[2019-11-06] VITALS (7 sets, daily range): BP systolic 76–97; BP diastolic 49–67
[2019-11-06] MEDS: SODIUM CHLORIDE 45ML SPRAY NS SCH ×4 (01:07→17:25)
[2019-11-06] MEDS: DEXTROSE 5% WATER 1,000 ML IV SCH (02:20)
[2019-11-06] MEDS: ALBUTEROL 6.7GM HFA INHALER ORI SCH ×3 (05:54→17:25)
[2019-11-06] MEDS: FLUTICASONE FUROATE 100 1 INH/CAP ORI SCH ×2 (09:00→21:50)
[2019-11-06] MEDS: THIAMINE HCL 100MG TABLET PO SCH ×2 (09:04→17:05)
[2019-11-06] MEDS: ZINC SULFATE 220 MG ( 50 ) CAPSULE PO SCH (09:04)
[2019-11-06] MEDS: ASCORBIC ACID 500 MG TABLET PO SCH ×2 (09:04→21:52)
[2019-11-06] MEDS ORDERED: LORAZEPAM 2MG/ML CPJ IV PRN (14:15)
[2019-11-06] MEDS ORDERED: MORPHINE SULFATE 250 MG in DEXT 5% WATER 240 ML IV PRN (20:15)
[2019-11-06] MEDS ORDERED: MORPHINE (DRIP)100 MG in DEXT 5% WATER 100ML IV PRN (21:00)
[2019-11-07] VITALS: BP 58/29
[2019-11-07] MEDS: SODIUM CHLORIDE 45ML SPRAY NS SCH (00:20)
[2019-11-07] MEDS: ALBUTEROL 6.7GM HFA INHALER ORI SCH (00:21)
[2019-11-07] MEDS: DEXTROSE 5% WATER 1,000 ML IV SCH (00:23)
[2019-11-07 04:00] VITALS: BP 46/28
== END 2019-11-07 08:54 | disposition expired | DRG 720 ==
LOC: ER 09:00 → EDBEDREQSVC 13:01 → EDBEDREQTM 13:01 → EDBEDREQ 13:01 → 7EST 10-13 12:58 → ENRESERV 10-13 21:50
PROVIDERS: ADMIT Internal Medicine Nephrology; ATTEND Internal Medicine
DX: A41.89 Other specified sepsis (principal); U07.1 COVID-19; J96.01 Acute respiratory failure with hypoxia; E43 Unspecified severe protein-calorie malnutrition; G93.41 Metabolic encephalopathy; I50.41 Acute combined systolic (congestive) and diastolic (congestive) heart failure; J81.1 Chronic pulmonary edema; Z66 Do not resuscitate; E87.0 Hyperosmolality and hypernatremia; E87.2 Acidosis; E44.1 Mild protein-calorie malnutrition; I69.351 Hemiplegia and hemiparesis following cerebral infarction affecting right dominant side; J44.0 Chronic obstructive pulmonary disease with (acute) lower respiratory infection; E86.1 Hypovolemia; J12.89 Other viral pneumonia; S00.211A Abrasion of right eyelid and periocular area, initial encounter; X58.XXXA Exposure to other specified factors, initial encounter; Z51.5 Encounter for palliative care; I11.0 Hypertensive heart disease with heart failure; T38.0X5A Adverse effect of glucocorticoids and synthetic analogues, initial encounter; Z79.899 Other long term (current) drug therapy; Z79.82 Long term (current) use of aspirin; Y93.89 Activity, other specified; Y92.89 Other specified places as the place of occurrence of the external cause; Y99.8 Other external cause status; Z87.891 Personal history of nicotine dependence; Z78.1 Physical restraint status; Z68.1 Body mass index [BMI] 19.9 or less, adult
CPT/HCPCS: 36415; 36600; 71045; 80048; 80053; 82140; 82375; 82553; 82728; 82805; 82962; 83036; 83605; 83615; 83735; 83880; 84100; 84145; 84484; 85025; 85379; 86140; 87635; 93005; 96365; 96366; 96367; 96368; 96375; 99285; J0456; J0692; J1650; J1940; J1956; J2060; J2270; J2543; J2765; J2920; J3370; J3480; J3490; J7030; J7060; J7070; U0001; U0003-CS